=== PATIENT | male | born 1975 | race American Indian/Alaskan Native ===

== ENCOUNTER 2020-11-23 08:00 | Outpatient (CLI) | payer OTHER | END 2020-11-23 08:30 | disposition home or self-care (01) | LOC: PPH VACUNA 08:00 | PROVIDERS: ATTEND Emergency Medicine Pediatric Emergency Medicine | DX: Z23 Encounter for immunization (principal) ==

== ENCOUNTER 2022-02-22 07:48 | Emergency (ER) | payer OTHER ==
[~2022-02-22] VITALS: Ht 190.5 cm; Wt 117.9 kg
[2022-02-22] MEDS ORDERED: METRONIDAZOLE500 MG PO (12:39)
[2022-02-22] MEDS ORDERED: CIPRO500 MG PO (12:39)
[2022-02-22] MEDS ORDERED: INTESTINEX680 M1 PO (13:40)
[2022-02-22] MEDS ORDERED: LEVSIN/SL0.125 MG SL (13:40)
== END 2022-02-22 14:09 | disposition home or self-care (01) ==
LOC: ER 07:48
DX: R19.7 Diarrhea, unspecified (principal); K29.70 Gastritis, unspecified, without bleeding; Z87.19 Personal history of other diseases of the digestive system; Z93.3 Colostomy status; Z91.040 Latex allergy status; Z88.2 Allergy status to sulfonamides; N20.0 Calculus of kidney

== ENCOUNTER 2022-03-27 11:30 | Emergency (ER) | payer OTHER ==
[~2022-03-27] VITALS: Ht 190.5 cm; Wt 117.9 kg
[~2022-03-27 11:30] MED LIST: CIPRO500 MG PO; INTESTINEX680 M1 PO; LEVSIN/SL0.125 MG SL; METRONIDAZOLE500 MG PO
== END 2022-03-27 14:46 | disposition home or self-care (01) ==
LOC: ER 11:30
DX: U07.1 COVID-19 (principal); Z88.2 Allergy status to sulfonamides; Z91.040 Latex allergy status

== ENCOUNTER 2023-05-10 08:44 | Emergency (ER) | payer OTHER ==
[~2023-05-10] VITALS: Ht 190.5 cm; Wt 117.5 kg
[2023-05-10] MEDS ORDERED: 0.9 % SODIUM CHLORIDE 1,000 ML IV STA (09:32)
[2023-05-10] MEDS ORDERED: FAMOtidine 10 MG/ML (4ML VIAL) IV PUSH STA (09:33)
[2023-05-10] MEDS ORDERED: HYOSCYAMINE SULFATE 0.125 MG TAB.SUBL SL STA (09:34)
[2023-05-10 10:06] LABS: URINE EPITHELIAL CELLS 1.8 uL (0.0-38.8); URINE WBC 5.2 uL (0.0-23.2)
[2023-05-10 10:39] LABS: HEMATOCRIT 42.6 % (39.0-48.0); HEMOGLOBIN 14.4 g/dL (13-16.00); MEAN CELL VOLUME 89.8 fL (80.0-100.00); MEAN CORPUSCULAR HEMOGLOBIN 30.4 pg (27.00-32.0); MEAN CORPUSCULAR HGB CONC 33.8 g/dl (32.0-36.0); PLATELET COUNT 271 K/uL (150-450); RED BLOOD COUNT 4.75 M/uL (4.00-6.00); RED CELL DISTRIBUTION WIDTH 13.6 % (11.5-14.5)
[2023-05-10 10:40] LABS: ALBUMIN 3.4 gm/dL (3.4-5.0); BILIRUBIN TOTAL 0.36 mg/dL (0.3-1.2); BILIRUBIN,CONJUGATED 0.11 mg/dL (0.0-0.2); BILIRUBIN,UNCONJUGATED 0.25 mg/dL (0.0-0.6); CREATININE SERUM 0.98 mg/dL (0.70-1.30); GFR 81.29; POTASSIUM 4.01 mEq/L (3.5-5.1); TOTAL PROTEIN 7.2 gm/dL (6.4-8.2)
[2023-05-10 11:42] LABS: PH,URINE 5.5 (5.0-8.0); URINE APPEARANCE Clear; URINE BILIRRUBIN Negative (NEGATIVE); URINE BLOOD Negative; URINE COLOR Yellow; URINE GLUCOSE Negative (NEGATIVE); URINE LEUKOCYTE Negative; URINE NITRATE Negative; URINE PROTEIN Negative (NEGATIVE); URINE UROBILINOGEN 0.2 E.U./dl
[2023-05-10 11:51] LABS: URINE BACTERIA 3.7 uL (0.0-1933)
[2023-05-10] MEDS ORDERED: LACTULOSE 10 G/15 ML ML PO STA (12:07)
[2023-05-10] MEDS ORDERED: MAGNESIUM HYDROXIDE 30 ML BLIST.PACK PO STA (12:08)
== END 2023-05-10 13:57 | disposition home or self-care (01) ==
LOC: ER 08:45
PROVIDERS: General Practice
DX: K59.00 Constipation, unspecified (principal); Z88.2 Allergy status to sulfonamides; Z91.040 Latex allergy status

== ENCOUNTER 2024-04-25 08:57 | Emergency (ER) | payer OTHER ==
[~2024-04-25] VITALS: Ht 190.5 cm; Wt 127.0 kg
[2024-04-25] MEDS ORDERED: KETO10TA2 PO (10:06)
[2024-04-25] MEDS ORDERED: NORFLEX100MG PO (10:06)
[2024-04-25] MEDS ORDERED: KETOROLAC TROMETHAMINE 60 MG VIAL IM ONE (10:15)
[2024-04-25] MEDS ORDERED: ORPHENADRINE CITRATE 30 MG/ML AMPUL IM ONE (10:15)
== END 2024-04-25 10:27 | disposition home or self-care (01) ==
LOC: ER 08:57
DX: M54.50 Low back pain, unspecified (principal); M62.830 Muscle spasm of back; Z91.040 Latex allergy status; Z88.2 Allergy status to sulfonamides